=== PATIENT | male | born 1960 | race Caucasian/White ===

== ENCOUNTER 2016-08-08 08:17 | Inpatient (IN) | payer OTHER ==
[~2016-08-08] VITALS: Ht 160 cm; Wt 48.3 kg
[~2016-08-08 08:17] MED LIST: ALBUTEROL; ASCORBIC ACID500 M3 GT; ATROVENT 00.5 MG/2.5 IH; AUGMENTIN875 MG GT; BACTROBAN OINTM22 GM TP; BISAC-EVAC10 MG PR; BISCOLAX10 MG RC; CALCIUM 600 +1 EAC7 GT; CALTRATE 6001 TABLE2 G-TUBE; CARDURA2 M1 G-TUBE; CARDURA2 M1 GT; CARDURA2 MG GT; CEFTIN500 MG GT; CENTAMIN240 ML GT; CHILD IBUP100 MG/5 M G-TUBE; CHILDREN'S100 MG/5 M PO; CHILDREN'S160 MG/22 PO; CHRONULAC,CEPHU30 ML PO; CLARITIN,ALAVAR10 MG PO; CLARITIN10 MG PO; CLARITIN5 MG/5 ML GT; CLONAZEPAM0.5 MG G-TUBE; COLACE10 MG/ML G-TUBE; CONSTULOSE10 GM/15 M GT; Cardura GT; DERMAPHOR228 GM TP; DIASTAT ACUDIAL10 MG PR; DIAZEPAM10 MG PR; DILANTIN INFATA50 MG PO; DILANTIN100 MG PO; DILANTIN50 MG GT; DIOCTO50 MG/5 ML GT; DIPROSONE 0.05%15 GM TP; DOC-Q-LACE50 MG/5 ML G-TUBE; DOCUSATE S50 MG/5 ML G-TUBE; DULCOLAX5 MG PR; DUONEB 2.5-0.5 M3 ML AEROSOL; DUONEB3 ML IH; EAR WAX DROPS15 ML BOTH EARS; FLUTICASONE; FOLIC ACID1 MG GT; FOLVITE1 MG G-TUBE; FOSAMAX70 M1 GT; FOSAMAX70 MG GT; FUROSEMIDE20 MG GT; GOLDEN AGE240 ML GT; HYCET 7.5 MG-3473 ML PO; HYDROXYZINE HCL10 MG GT; KEFLEX500 MG GT; KEFLEX500 MG PO; KEPPRA ORAL100 MG/ML PO; KEPPRA100 MG/1 M GT; KLONOPIN0.5 M1; KLONOPIN0.5 M1 G-TUBE; KLONOPIN0.5 M1 GT; LAC-HYDRIN 12%140 GM TD; LAC-HYDRIN 12%140 GM TP; LACTULOSE10 GM/15 M GT; LAMICTAL150 M1 GT; LAMICTAL200 MG GT; LAMICTAL200 MG PO; LAMOTRIGINE200 MG GT; LASIX10 MG GT; LASIX20 MG GT; LIDEX 0.05% CRE60 GM TP; LIDEX 0.05% OIN15 GM TD; LORATADINE5 MG/5 M2 GT; MAPAP160 MG/51 PO; MOTRIN100 MG/5 M G-TUBE; MUPIROCIN22 GM TP; NEXIUM20 M1 GT; NEXIUM40 M1 GT; PHENERGAN DM SYR1 ML GT; PHENERGAN25 MG PR; PHENOBARBI30 MG/7.5 G-TUBE; PHENOBARBI30 MG/7.5 GT; PHENOBARBITAL; PHENOBARBITAL15 MG GT; PHENOBARBITAL60 MG GT; PHENYTOIN 50 MG/ML GT; PHENYTOIN50 MG GT; PRILOSEC40 MG GT; PROLIA60 MG/1 ML SC; PROMETHAZINE HC25 MG PR; PROTEXIN GT; PROVENTIL,2.5 MG/3 M IH; Phenobarbital GT; Proventil,Ventolin 0 IH; THERA PLUS GT; THERAGRAN5 ML G-TUBE; THERAGRAN5 ML PO; TRAMADOL HCL50 MG GT; TRIPLE ANTIBIO1 EAC1 TP; TUSSIN CF COUG118 ML GT; TYLENOL FO160 MG/5 M GT; TYLOPHEN500 MG GT; ULTRAM50 MG GT; ULTRAM50 MG PO; VALIUM10 MG PR; VALIUM5 MG G-TUBE; VENTOLIN HFA18 GM IH; VITAMIN C GT; Valium IM; WATER BOTTLE1 EACH GT; ZANTAC150 MG GT; ZINC30 MG GT; ZITHROMAX500 MG PO; [UNRECOGNIZED DRUG - OTHER] GT; [UNRECOGNIZED DRUG - OTHER] TP
[2016-08-08 09:29] LABS: HEMATOCRIT 49.9 % (38.0-50.0); MCH 32.1 PG (29.0-34.0); MCHC 30.5 G/DL (30.0-36.0); MEAN PLAT.VOLUME 10.5 uM^3 (9.0-12.4); PLATELET COUNT 197 K/uL (156-360); RBC DIS.WIDTH-CV 13.7 % (11.8-14.6); RBC DIS.WIDTH-SD 52.3 % (39-53); RED BLOOD COUNT 4.74 M/uL (4.00-5.50)
[2016-08-08 09:35] LABS: EOSINOPHIL (%) 1.3 % (0-5); EOSINOPHIL COUNT 0.2 K/uL (0-0.3); IMMATURE GRANULOCYTE (%) 0.3 % (0.0-0.7); IMMATURE GRANULOCYTE COUNT 0.5 K/uL; LYMPHOCYTE COUNT 0.7 K/uL (1.0-2.8); MONOCYTE (%) 10.5 % (3-12); MONOCYTE COUNT 1.8 K/uL (0-0.8); NEUTROPHIL COUNT 14.6 K/uL (1.8-6.4)
[2016-08-08 09:35] LABS: ADD MIUA? YES; BILIRUBIN NEGATIVE; BLOOD LARGE; COLOR YELLOW ((YELLOW)); GLUCOSE (STRIP) NEGATIVE; KETONES NEGATIVE; LEUKOCYTES LARGE; NITRITE NEGATIVE; PH, URINE 8.5 (5-8); PROTEIN (STRIP) >=300; SPECIFIC GRAVITY 1.016 (1.000-1.030); UROBILINOGEN 0.2 MG/DL (0.2-1.0)
[2016-08-08 09:39] LABS: GLUCOSE 133 mg/dL (70-99)
[2016-08-08 09:40] LABS: ANION GAP 13 MEQ/L (2-14)
[2016-08-08 09:42] LABS: GFR ESTIMATE (CALCULATED) > 59 mL/min/
[2016-08-08 09:43] LABS: MCV 105.3 FL (86-99); UREA NITROGEN (BUN) 58 mg/dL (9-23); WHITE BLOOD COUNT 17.4 K/uL (4.1-10.2)
[2016-08-08 09:59] LABS: CHLORIDE 125 mEq/L (99-109); POTASSIUM 4.1 mEq/L (3.7-5.4); SODIUM 166 mEq/L (136-147)
[2016-08-08 10:16] LABS: UCUL ADDED? YES; WHITE BLOOD CELLS TNTC /HPF (0-5)
[2016-08-08] MEDS ORDERED: DERMAPHOR228 GM TP (10:49)
[2016-08-08] MEDS ORDERED: OMEPRAZOLE40 M1 GT (10:54)
[2016-08-08] MEDS ORDERED: VITAMIN C500 MG/15 GT (10:56)
[2016-08-08] MEDS ORDERED: PROVENTIL,2.5 MG/3 M IH (11:00)
[2016-08-08] MEDS ORDERED: CALMOSEPTINE O120 GM TP (11:01)
[2016-08-08] MEDS ORDERED: ENEMA133 M2 PR (11:04)
[2016-08-08] MEDS ORDERED: IBUPROFEN100 MG/5 M GT (11:07)
[2016-08-08] MEDS ORDERED: PROMETHAZINE-D120 ML GT (11:09)
[2016-08-08] MEDS ORDERED: ATROVENT 00.5 MG/2.5 IH (14:29)
[2016-08-08] MEDS ORDERED: HYCET 7.5 MG-3473 ML PO (15:02)
[2016-08-08 15:40] VITALS: BP 124/58
[2016-08-08 19:11] LABS: ANION GAP 10 MEQ/L (2-14); CHLORIDE 127 MEQ/L (99-109); GFR ESTIMATE (CALCULATED) > 59 mL/min/; GLUCOSE 117 mg/dL (70-99); SAMPLE HEMOLYSIS CHECK 1; SAMPLE ICTERIC CHECK 0; SAMPLE LIPEMIA CHECK 0; UREA NITROGEN (BUN) 50 mg/dL (9-23)
[2016-08-08 19:21] LABS: SODIUM 165 MEQ/L (136-147)
[2016-08-08 20:07] VITALS: BP 126/60
[2016-08-08 22:28] LABS: ANION GAP 8 MEQ/L (2-14); CHLORIDE 129 MEQ/L (99-109); GFR ESTIMATE (CALCULATED) > 59 mL/min/; GLUCOSE 103 mg/dL (70-99); POTASSIUM 3.4 MEQ/L (3.7-5.4); SAMPLE HEMOLYSIS CHECK 0; SAMPLE ICTERIC CHECK 0; SAMPLE LIPEMIA CHECK 0; UREA NITROGEN (BUN) 44 mg/dL (9-23)
[2016-08-08 22:30] LABS: SODIUM 165 MEQ/L (136-147)
[2016-08-09 00:03] VITALS: BP 109/62
[2016-08-09 01:10] LABS: TROP-I INTERPRETATION NEGATIVE; TROPONIN-I 0.02 ng/mL (0.0-0.30)
[2016-08-09 03:30] VITALS: BP 115/87
[2016-08-09 07:26] LABS: TROP-I INTERPRETATION NEGATIVE; TROPONIN-I 0.03 ng/mL (0.0-0.30)
[2016-08-09 07:54] LABS: ALKALINE PHOSPHATASE 151 IU/L (3-129); ANION GAP 8 MEQ/L (2-14); CHLORIDE 127 MEQ/L (99-109); GFR ESTIMATE (CALCULATED) > 59 mL/min/; GLUCOSE 121 mg/dL (70-99); POTASSIUM 3.6 MEQ/L (3.7-5.4); SAMPLE HEMOLYSIS CHECK 0; SAMPLE ICTERIC CHECK 0; SAMPLE LIPEMIA CHECK 0; SODIUM 159 MEQ/L (136-147); TOTAL BILIRUBIN 0.7 MG/DL (0.0-1.0); UREA NITROGEN (BUN) 35 mg/dL (9-23)
[2016-08-09 08:00] VITALS: BP 106/56
[2016-08-09 09:06] LABS: HEMATOCRIT 42.3 % (38.0-50.0); MCH 32.7 PG (29.0-34.0); RBC DIS.WIDTH-CV 14.3 % (11.8-14.6); RBC DIS.WIDTH-SD 56.1 % (39-53); RED BLOOD COUNT 3.88 M/uL (4.00-5.50); WHITE BLOOD COUNT 15.7 K/uL (4.1-10.2)
[2016-08-09 10:05] LABS: PLATELET COUNT 132 K/uL (156-360)
[2016-08-09 11:54] LABS: POINT-OF-CARE METER ID UU14174216; POINT-OF-CARE USER ID ENVKC36
[2016-08-09 11:58] VITALS: BP 100/56
[2016-08-09 12:57] LABS: ANION GAP 8 MEQ/L (2-14); CHLORIDE 126 MEQ/L (99-109); GFR ESTIMATE (CALCULATED) > 59 mL/min/; GLUCOSE 128 mg/dL (70-99); POTASSIUM 3.1 MEQ/L (3.7-5.4); SAMPLE HEMOLYSIS CHECK 0; SAMPLE ICTERIC CHECK 0; SAMPLE LIPEMIA CHECK 0; SODIUM 159 MEQ/L (136-147); UREA NITROGEN (BUN) 29 mg/dL (9-23)
[2016-08-09 15:25] VITALS: BP 106/52
[2016-08-09 19:37] VITALS: BP 109/57
[2016-08-10 00:09] LABS: POINT-OF-CARE METER ID UU14174216
[2016-08-10 04:21] VITALS: BP 97/52
[2016-08-10 05:06] LABS: CHLORIDE 129 mEq/L (99-109); SODIUM 156 mEq/L (136-147)
[2016-08-10 05:08] LABS: GLUCOSE 113 mg/dL (70-99)
[2016-08-10 05:09] LABS: ANION GAP 6 MEQ/L (2-14)
[2016-08-10 05:12] LABS: GFR ESTIMATE (CALCULATED) > 59 mL/min/
[2016-08-10 05:13] LABS: UREA NITROGEN (BUN) 24 mg/dL (9-23)
[2016-08-10 05:19] LABS: POTASSIUM 4.1 mEq/L (3.7-5.4)
[2016-08-10 07:00] VITALS: BP 102/58
[2016-08-10 11:41] VITALS: BP 99/61
[2016-08-10 14:44] VITALS: BP 112/62
[2016-08-10 20:00] VITALS: BP 140/76
[2016-08-10 22:15] VITALS: BP 114/57
[2016-08-11 04:17] VITALS: BP 99/55
[2016-08-11 07:05] VITALS: BP 116/63
[2016-08-11 07:35] LABS: ALKALINE PHOSPHATASE 174 IU/L (3-129); ANION GAP 7 MEQ/L (2-14); CHLORIDE 116 MEQ/L (99-109); GFR ESTIMATE (CALCULATED) > 59 mL/min/; GLUCOSE 102 mg/dL (70-99); POTASSIUM 4.2 MEQ/L (3.7-5.4); SAMPLE HEMOLYSIS CHECK 2; SAMPLE ICTERIC CHECK 0; SAMPLE LIPEMIA CHECK 0; TOTAL BILIRUBIN 0.8 MG/DL (0.0-1.0); UREA NITROGEN (BUN) 12 mg/dL (9-23)
[2016-08-11 07:37] LABS: SODIUM 143 MEQ/L (136-147)
[2016-08-11 09:00] LABS: EOSINOPHIL (%) 4.9 % (0-5); EOSINOPHIL COUNT 0.2 K/uL (0-0.3); IMMATURE GRANULOCYTE (%) 1.1 % (0.0-0.7); IMMATURE GRANULOCYTE COUNT 0.1 K/uL; LYMPHOCYTE COUNT 1.1 K/uL (1.0-2.8); MONOCYTE (%) 9.3 % (3-12); MONOCYTE COUNT 0.4 K/uL (0-0.8); NEUTROPHIL COUNT 2.9 K/uL (1.8-6.4)
[2016-08-11 09:45] LABS: HEMATOCRIT 33.7 % (38.0-50.0); MCH 32.5 PG (29.0-34.0); MCHC 31.5 G/DL (30.0-36.0); PLAT.SUFFICIENCY DECREASED; RBC DIS.WIDTH-CV 13.5 % (11.8-14.6); RBC DIS.WIDTH-SD 50.9 % (39-53); RED BLOOD COUNT 3.26 M/uL (4.00-5.50)
[2016-08-11 09:52] LABS: WHITE BLOOD COUNT 4.7 K/uL (4.1-10.2)
[2016-08-11 09:53] LABS: MCV 103.4 FL (86-99); PLATELET COUNT UNABLE TO REPORT K/uL (156-360)
[2016-08-11 12:25] VITALS: BP 105/60
[2016-08-11 16:05] VITALS: BP 110/63
[2016-08-11 19:39] VITALS: BP 120/72
[2016-08-11 23:36] VITALS: BP 125/67
[2016-08-12 03:30] VITALS: BP 104/52
[2016-08-12 07:41] LABS: ALKALINE PHOSPHATASE 169 IU/L (3-129); ANION GAP 6 MEQ/L (2-14); CHLORIDE 114 MEQ/L (99-109); GFR ESTIMATE (CALCULATED) > 59 mL/min/; GLUCOSE 111 mg/dL (70-99); SAMPLE HEMOLYSIS CHECK 1; SAMPLE ICTERIC CHECK 0; SAMPLE LIPEMIA CHECK 0; SODIUM 142 MEQ/L (136-147); UREA NITROGEN (BUN) 11 mg/dL (9-23)
[2016-08-12 07:43] LABS: TOTAL BILIRUBIN 1.1 MG/DL (0.0-1.0)
[2016-08-12 07:51] LABS: EOSINOPHIL (%) 1.8 % (0-5); EOSINOPHIL COUNT 0.2 K/uL (0-0.3); IMMATURE GRANULOCYTE (%) 0.5 % (0.0-0.7); IMMATURE GRANULOCYTE COUNT 0.1 K/uL; MCHC 32.9 G/DL (30.0-36.0); MCV 100.3 FL (86-99); MEAN PLAT.VOLUME 10.6 uM^3 (9.0-12.4); MONOCYTE (%) 11.5 % (3-12); MONOCYTE COUNT 1.5 K/uL (0-0.8); NEUTROPHIL (%) 78.2 % (45-76); NEUTROPHIL COUNT 10.2 K/uL (1.8-6.4); RBC DIS.WIDTH-CV 13.2 % (11.8-14.6); RBC DIS.WIDTH-SD 47.9 % (39-53); RED BLOOD COUNT 3.39 M/uL (4.00-5.50)
[2016-08-12 08:06] VITALS: BP 141/65
[2016-08-12 08:13] LABS: PLATELET COUNT 189 K/uL (156-360)
[2016-08-12 15:41] VITALS: BP 144/67
[2016-08-12 20:00] VITALS: BP 133/61
[2016-08-12 23:45] VITALS: BP 140/66
[2016-08-13 03:15] VITALS: BP 122/60
[2016-08-13 06:40] VITALS: BP 120/70
[2016-08-13] MEDS ORDERED: SANTYL30 GM TP (13:29)
[2016-08-13 15:55] VITALS: BP 118/64
== END 2016-08-13 16:30 | disposition home or self-care (01) | DRG 871 ==
LOC: EME → EDBD 08:17 → EDOF 12:45 → 4EAST 12:45 → EDOF 12:58 → 4EAST 15:33 → 2EAST 08-10 22:09
PROVIDERS: Emergency Medicine; Nurse Practitioner Adult Health; Pediatrics
PROC: 0T7D7ZZ Dilation of Urethra, Via Natural or Artificial Opening (ICD-10-PCS; principal; 2016-08-11)
DX: A41.9 Sepsis, unspecified organism (principal); N10 Acute pyelonephritis; J18.9 Pneumonia, unspecified organism; E87.0 Hyperosmolality and hypernatremia; E86.0 Dehydration; E87.6 Hypokalemia; N35.9 Urethral stricture, unspecified; G80.0 Spastic quadriplegic cerebral palsy; F73 Profound intellectual disabilities; L89.890 Pressure ulcer of other site, unstageable; N40.1 Benign prostatic hyperplasia with lower urinary tract symptoms; R33.9 Retention of urine, unspecified; R32 Unspecified urinary incontinence; R63.4 Abnormal weight loss; Z68.1 Body mass index [BMI] 19.9 or less, adult; G40.909 Epilepsy, unspecified, not intractable, without status epilepticus; N31.2 Flaccid neuropathic bladder, not elsewhere classified; R15.9 Full incontinence of feces; D64.9 Anemia, unspecified; F41.9 Anxiety disorder, unspecified; K21.9 Gastro-esophageal reflux disease without esophagitis; M81.0 Age-related osteoporosis without current pathological fracture; F32.9 Major depressive disorder, single episode, unspecified; Z93.1 Gastrostomy status
CPT/HCPCS: 71010; 71020; 80048; 80048 91; 80053; 81003; 82948; 83605; 84484; 85025; 85027; 87040; 87077; 87086; 87186; 99202; 99281; 99285; J0456; J0696; J1650; J2543; J3370; J7030; J7050

== ENCOUNTER 2016-08-23 22:14 | Emergency (ER) | payer OTHER ==
[~2016-08-23] VITALS: Ht 147.3 cm; Wt 53.0 kg
[~2016-08-23 22:14] MED LIST changes: +CALMOSEPTINE O120 GM TP; +ENEMA133 M2 PR; +IBUPROFEN100 MG/5 M GT; +OMEPRAZOLE40 M1 GT; +PROMETHAZINE-D120 ML GT; +SANTYL30 GM TP; +VITAMIN C500 MG/15 GT
[2016-08-24 00:37] VITALS: BP 129/66
== END 2016-08-24 00:40 | disposition home or self-care (01) ==
LOC: EME 22:14
DX: K94.20 Gastrostomy complication, unspecified (principal); L89.899 Pressure ulcer of other site, unspecified stage; G80.9 Cerebral palsy, unspecified
CPT/HCPCS: 99281; 99284